=== PATIENT | female | born 1970 ===

== ENCOUNTER 2023-10-19 06:57 | Day surgery (SDC) | payer OTHER ==
[~2023-10-19] VITALS: Ht 162.6 cm; Wt 108.9 kg
[2023-10-19] MEDS ORDERED: MIDAZOLAM 2 MG/2 ML VIAL ONE (07:51)
[2023-10-19] MEDS ORDERED: fentaNYL citrate 0.05 MG/ML VIAL ONE (07:51)
[2023-10-19] MEDS ORDERED: LIDOCAINE 2% 100 MG/5 ML UJET TP ONE (07:51)
== END 2023-10-19 09:29 | disposition home or self-care (01) ==
LOC: MOR 06:57 → MMU 06:58 → MOR 09:29
PROVIDERS: ATTEND Internal Medicine Gastroenterology
DX: Z12.11 Encounter for screening for malignant neoplasm of colon (principal); I10 Essential (primary) hypertension; E11.9 Type 2 diabetes mellitus without complications; E78.5 Hyperlipidemia, unspecified; Z79.82 Long term (current) use of aspirin; Z79.84 Long term (current) use of oral hypoglycemic drugs; Z79.899 Other long term (current) drug therapy
CPT/HCPCS: 45378; 82948; J3010; J2250